=== PATIENT | female | born 1970 | race Caucasian/White ===

== ENCOUNTER 2021-10-08 03:40 | Emergency (ER) | payer OTHER, SELFPAY ==
[2021-10-08 03:40] VITALS: BP 117/75; PULSE 98; RESP 20; TEMP 36.1; O2SAT 94; BMI 26.0
[2021-10-08 03:43] VITALS: O2SAT 95
[2021-10-08 03:59] VITALS: O2SAT 86
--- NOTE | 2021-10-08 04:07 | ED.VIS.DYS ---
HPI History of Present Illness Chief Complaint: Shortness of Breath Narrative Narrative: 51-year-old female presenting with shortness of breath. He is day 7 of Covid symptoms. She was tested on Wednesday. She no longer having fever or chills. She has some dyspnea on exertion. She noted earlier at home when she was ambulating at home that her pulse ox read 88%. She presents to the ER for evaluation. She denies chest pain. She states that she called her primary care physician but it is difficult to get through to them. She wanted to be referred for the monoclonal antibodies. [facility] Medical History Diabetes Hypertension Home Medications amlodipine 5 mg PO DAILY 10/08/21 [History Last Taken Unknown] glimepiride 4 mg PO BID 10/08/21 [History Last Taken Unknown] insulin glargine [Lantus Solostar U-100 Insulin] 25 unit SUBCUT DAILY 10/08/21 [History Last Taken Unknown] insulin lispro [Humalog KwikPen Insulin] 8 - 12 sliding scale dose SUBCUT DAILY 10/08/21 [History Last Taken Unknown] metformin 1,000 mg PO BID 10/08/21 [History Last Taken Unknown] metoprolol succinate 25 mg PO BID 10/08/21 [History Last Taken Unknown] Allergy/AdvReac Type Severity Reaction Status Date / Time No Known Allergies Allergy Verified 10/08/21 03:43 Social History Smoking Status: Never smoker [facility] ED Constitutional Constitutional ED: Denies chills or fever(s) Eyes Eyes: Denies blurry vision or change in vision ENT ENT ED: Denies rhinorrhea or sore throat Cardiovascular Cardiovascular: Denies chest pain or palpitations Respiratory/Chest Respiratory/Chest: Reports cough, dyspnea and dyspnea on exertion; Denies sputum Gastrointestinal Gastrointestinal: Denies abdominal pain or nausea Genitourinary Genitourinary ED: Denies dysuria or hematuria Musculoskeletal Musculoskeletal: Denies arthralgias, back pain, myalgias or neck pain Integumentary Denies rash Neurologic Neurologic: Denies headache(s) or paresthesias EXAM Physical Exam Const Vital Signs: 10/08/21 03:40 10/08/21 03:43 Temperature 96.9 F L Temperature Source Temporal Pulse Rate 98 Respiratory Rate 20 H Respiratory Pattern Tachypnea Blood Pressure 117/75 Blood Pressure Mean 89 Pulse Ox 94 Oxygen Delivery Method Room Air Room Air Positive well nourished General Appearance ED: NAD HEENT Reports moist mucous membranes atraumatic Eyes PERRL and EOMs intact bilaterally Resp normal respiratory effort and clear to auscultation bilaterally Cardio regular rate and regular rhythm Neuro oriented x3, CN's II-XII intact bilaterally and no sensory deficits noted Sensorium / Orientation: alert Motor Exam: strength 5/5 throughout Psych mental status grossly normal Thought Process: normal thought process Skin Lesions: no lesions Rashes: no rashes MDM MDM MDM Narrative Medical decision making narrative: Patient presenting with shortness of breath secondary to COVID-19. She is not having chest pain. She is trying to get referred for monoclonal antibodies although she is having difficulty getting in referral. Initially when she is ambulated she dropped to 85% on room air per nursing. When I walked into the room she was 94% sitting comfortably. She is not having any chest pain or other red flag signs or symptoms. I got her up by the bedside and ambulated her for a full [address] and she maintained sats of 93 to 98%. She does not appear dyspneic. Given this and her history of hypertension and diabetes I will refer her for the monoclonal antibodies. The order was put in the computer. She is given return precautions. Impression: 1. History of COVID-19 2. Dyspnea Discharge Plan Triage Chief Complaint: Shortness of Breath ED Provider: Schuyler Lion Dx/Rx/DC Orders Instructions: Coronavirus Disease 2019 (COVID-19): Caring for Yourself or Others Prescriptions: No Action amlodipine 5 mg tablet 5 mg PO DAILY RF: 0 metformin 1,000 mg tablet 1,000 mg PO BID RF: 0 glimepiride 4 mg tablet 4 mg PO BID RF: 0 metoprolol succinate 25 mg tablet extended release 24 hr 25 mg PO BID RF: 0 insulin lispro [Humalog KwikPen Insulin] 100 unit/mL insulin pen 8 - 12 sliding scale dose SUBCUT DAILY RF: 0 Lantus Solostar U-100 Insulin 100 unit/mL (3 mL) insulin pen 25 unit SUBCUT DAILY RF: 0 Other Ambulatory Orders: COVID Outpatient Monoclonal Antibody Referral (Routine) Timeframe: 1 Day Facility: [facility] - Location: [facility] Ordered By: Dr. Schuyler Lion Primary Care Provider: Vandana Ramos Referrals: Vandana Ramos MD [Primary Care Provider] - Disposition Disposition: Home, Self Care
[2021-10-08 04:24] VITALS: BP 90/77; PULSE 97; RESP 20; O2SAT 94
== END 2021-10-08 04:40 | disposition home or self-care (01) ==
PROVIDERS: Emergency Provider Student in an Organized Health Care Education/Training Program; PCP Internal Medicine
DX: R06.00 Dyspnea, unspecified (principal); E11.9 Type 2 diabetes mellitus without complications; I10 Essential (primary) hypertension; Z79.4 Long term (current) use of insulin; Z79.899 Other long term (current) drug therapy; Z86.16 Personal history of COVID-19
CPT/HCPCS: 99282

== ENCOUNTER 2021-10-09 13:32 | Outpatient (CLI) | payer OTHER, SELFPAY ==
[2021-10-09] MEDS: 0.9% Saline Lock 10 ML Syringe IV (13:57)
[2021-10-09 14:00] VITALS: BP 121/65; PULSE 93; RESP 16; TEMP 36.9; O2SAT 96; BMI 25.7
[2021-10-09 14:36] VITALS: BP 121/61; PULSE 92; RESP 16; TEMP 37.3; O2SAT 94
[2021-10-09 15:36] VITALS: BP 116/63; PULSE 91; RESP 16; TEMP 37.2; O2SAT 95
== END 2021-10-09 15:36 | disposition home or self-care (01) ==
LOC: MS3OUT 13:32 → MS3 13:33
PROVIDERS: PCP Internal Medicine; Referring Provider Nurse Practitioner Adult Health; Visit Provider Nurse Practitioner Adult Health
DX: Z23 Encounter for immunization (principal); U07.1 COVID-19
CPT/HCPCS: J7050; M0245; Q0245; A4216